=== PATIENT | male | born 1955 | race Caucasian/White ===

== ENCOUNTER 2016-08-10 12:50 | Emergency (ER) | payer OTHER ==
[~2016-08-10] VITALS: Ht 172.7 cm; Wt 72.7 kg
[~2016-08-10 12:50] MED LIST: [UNRECOGNIZED DRUG - CODE] PO
[2016-08-10 13:22] VITALS: BP 104/65; PULSE 71; RESP 12; O2SAT 98
[2016-08-10 14:46] LABS: BASOPHILS % (AUTO) 0.7 % (0-3); MONOCYTES % (AUTO) 11.7 % (4-12); Mean Corpuscular Hemoglobin 30.7 pg (27.0-35.0); Mean Corpuscular Volume 90.5 fL (81-100); NEUTROPHILS % (AUTO) 56.9 % (40-74); Platelet Count 104 bil/L (150-400)
--- NOTE | 2016-08-10 15:01 | DRSVH ---
PROCEDURE: X-RAY CHEST, TWO VIEWS ([id number]) INDICATIONS: CHEST PAIN TECHNIQUE: 2 views of the chest were acquired. COMPARISON: None. FINDINGS: Surgical changes and devices: None. Lungs and pleura: No pleural effusions or pneumothorax. Lungs are clear. Mediastinum: Mediastinal contours are normal. Heart size is normal. Bones and chest wall: No suspicious bony abnormalities. Soft tissues appear unremarkable. IMPRESSION: 1. No acute cardiopulmonary disease. Dictated by: Tyrone Dobbins M.D. on 08/10/2016 at 15:00 Approved by: Tyrone Dobbins M.D. on 08/10/2016 at 15:00
[2016-08-10 15:15] LABS: TROPONIN T < 0.010 ug/L (0.0-0.011)
[2016-08-10 15:19] LABS: Lipase 58 U/L (13-60); Magnesium 1.9 mg/dL (1.6-2.6)
[2016-08-10] MEDS ORDERED: LISI-571 PO (15:35)
[2016-08-10] MEDS ORDERED: [UNRECOGNIZED DRUG - REMARK] (15:35)
--- NOTE | 2016-08-10 15:39 | ED.REPORT ---
HPI-Chest Pain 40 and Over Date of Service Aug 10, 2016 ED Provider: Doc,Ed MD History of Present Illness: 61yo male recently released from incarceration c/o pain, "all over." This pain is identical to pain that has been longstanding for several years. he denies any new trauma. He reports hx. of lymphoma and thyroid disease. Denies any current meds, "But I'm supposed to be taking medicine." He is currently homeless, residing in area shelters. Nursing Notes Stated Complaint: SEVERE THROAT,THYROID,SPINE AND ABD PAIN Chief Complaint: General Complaint Nursing Notes Reviewed: Yes Allergies: Coded Allergies: NSAIDS (Non-Steroidal Anti-Inflamma (Verified Allergy, Unknown, 08/10/16) Sulfa (Sulfonamide Antibiotics) (Verified Allergy, Unknown, 08/10/16) gabapentin (Verified Allergy, Unknown, 08/10/16) ranitidine (Verified Allergy, Unknown, makes pt very thirsty, 08/10/16) tramadol (Verified Allergy, Unknown, 08/10/16) acetaminophen (Verified Adverse Reaction, Severe, Liver damage, 12/08/08) ibuprofen (Verified Adverse Reaction, Intermediate, GI distress, 12/08/08) peanut (Verified Adverse Reaction, Intermediate, Rash, itch., 12/08/08) General Time Seen by MD: 15:38 Chief Complaint Back pain, Other Pain bodywide. Hx Obtained From: Patient Arrived By: Walk-in Sudden in Onset?: No Location: : Back: Neck: Shoulder left: Shoulder right Quality: Aching Radiation: : Does not radiate Severity: Current: Severe Severity: Maximum: Severe Associated with: Denies: Cough, non-productive, Fever, Near-syncope, Palpitations, Shortness of Breath Pertinent Negative: Pt denies other symptoms Similar Sx Previous: Yes Risk Factors )( CAD Risk Stratification Risk factors reviewed )( PE Risk Stratification Malignancy HEART Score HEART for MACE: Low index of susp (0), Normal ECG (0), Age 45 - 65 (1), < or = to NL troponin (0) HEART for MACE Score: 0-3 (low risk 0.9%-1.7%) Past Medical History Past Medical History lymphoma thyroid disease Social History Drug Use: Denies drug use Other Social History: Homeless Ambulatory Status Independent Review of Systems Constitutional: Denies: Chills, Fever Respiratory: Denies: Shortness of breath Cardiovascular: Reports: Chest pain GI: Denies: Abdominal pain Musculoskeletal: Reports: Back pain Neurologic: Reports: Headache, Denies: Focal weakness Psychiatric: Reports: Anxiety Physical Exam Initial Vital Signs Vital Signs (First) Date Time Temp Pulse Resp B/P Pulse Ox O2 Delivery O2 Flow Rate FiO2 08/10/16 13:22 36.7 71 12 104/65 98 Room Air Initial VS: Vital signs normal General/Constitutional: Awake, Alert, No acute distress, Well hydrated, Not toxic appearing Respiratory / Chest: Breath sounds NL, Breath sounds = bilat, No respiratory distress Cardiovascular: Heart rate NL, Regular rhythm, Heart sounds NL Abdomen: Soft, Non-tender, No guarding, No rebound Interpretation & Diagnostics Lab Results Interpretation Result Diagram: 08/10/16 1436 08/10/16 1436 Test 08/10/16 14:36 White Blood Count 4.6th/mm3 (3.8-10.1) Red Blood Count 4.20mil/mm3 (4.40-5.80) Hemoglobin 12.9g/dL (13.8-17.2) Hematocrit 38.0% (41.0-50.0) Mean Corpuscular Volume 90.5fL (81-100) Mean Corpuscular Hemoglobin 30.7pg (27.0-35.0) Mean Corpuscular Hemoglobin Concent 33.9% (32.0-37.0) Red Cell Distribution Width 12.5% (12.3-15.4) Platelet Count 104bil/L (150-400) Neutrophils (%) (Auto) 56.9% (40-74) Lymphocytes (%) (Auto) 28.5% (14-46) Monocytes (%) (Auto) 11.7% (4-12) Eosinophils (%) (Auto) 2.0% (0-5) Basophils (%) (Auto) 0.7% (0-3) Sodium Level 140mEq/L (134-144) Potassium Level 4.3mEq/L (3.5-5.2) Chloride Level 101mEq/L (97-108) Carbon Dioxide Level 26mmol/L (18-29) Blood Urea Nitrogen 19mg/dL (6-24) Creatinine 0.76mg/dL (0.76-1.27) Estimat Glomerular Filtration Rate 112mL/min (>59) Glucose Level 101mg/dL (60-99) Calcium Level 10.0mg/dL (8.5-10.1) Magnesium Level 1.9mg/dL (1.6-2.6) Total Bilirubin 0.3mg/dL (0.0-1.2) Aspartate Amino Transf (AST/SGOT) 19U/L (0-50) Alanine Aminotransferase (ALT/SGPT) 13U/L (0-44) Alkaline Phosphatase 47U/L (25-160) Troponin T < 0.010ug/L (0.0-0.011) Total Protein 7.3g/dL (6.4-8.4) Albumin 4.0g/dL (3.4-5.0) Lipase 58U/L (13-60) ECG Interpretation Time: 16:00 Interpreted by: ED physician Normal ECG Interpretation: Normal ECG w/ rate of... (65) Re-Eval/Medical Decision Med Decision/Clinical Course Pt. eloped prior to completion of ED evaluation. Discharge & Departure Primary Impression: Chronic pain disorder Disposition: AGAINST MEDICAL ADVICE (Pt. eloped prior to completion of evaluation or development of treatment plan) Referrals: NOPCP (PCP) EDSupervising Provider for APC: Lane Ceballos MD, Christopher R PAC Aug 10, 2016 15:39
== END 2016-08-10 17:25 | disposition left against medical advice (07) ==
LOC: SED 12:50
DX: M54.9 Dorsalgia, unspecified (principal); M25.511 Pain in right shoulder; M25.512 Pain in left shoulder; G89.29 Other chronic pain; R07.9 Chest pain, unspecified; Z59.0 Homelessness; Z88.2 Allergy status to sulfonamides; Z88.5 Allergy status to narcotic agent; Z88.8 Allergy status to other drugs, medicaments and biological substances; Z91.048 Other nonmedicinal substance allergy status; Z91.010 Allergy to peanuts; Z53.29 Procedure and treatment not carried out because of patient's decision for other reasons
CPT/HCPCS: 36415; 71020; 80053; 83690; 83735; 84484; 85025; 93005; 99284; G0463

== ENCOUNTER 2016-08-11 06:44 | Emergency (ER) | payer OTHER ==
[~2016-08-11] VITALS: Ht 172.7 cm; Wt 72.7 kg
[~2016-08-11 06:44] MED LIST changes: +LISI-571 PO; +[UNRECOGNIZED DRUG - REMARK]
[2016-08-11 06:58] VITALS: BP 120/75; PULSE 74; RESP 16; O2SAT 98
--- NOTE | 2016-08-11 07:54 | ED.REPORT ---
HPI-General Illness Date of Service Aug 11, 2016 ED Provider: Greyson Yancey MD The patient is a 61 year old male with history of stage IV non-Hodgkin lymphoma s/p chemotherapy, who presents to the emergency department with multiple complaints. The patient has experienced abdominal pain, throat pain, and difficulty urinating over the last several months. He denies fever, chills, dysuria, vomiting or diarrhea. He has concerns for multiple types of cancer and other potentially life threatening disease. He was seen in the emergency department and had a normal workup. Nursing Notes Stated Complaint: THROAT PAIN/ABDOMINAL PAIN Chief Complaint: General Complaint Nursing Notes Reviewed: Yes Allergies: Coded Allergies: NSAIDS (Non-Steroidal Anti-Inflamma (Verified Allergy, Unknown, 08/10/16) Sulfa (Sulfonamide Antibiotics) (Verified Allergy, Unknown, 08/10/16) gabapentin (Verified Allergy, Unknown, 08/10/16) ranitidine (Verified Allergy, Unknown, makes pt very thirsty, 08/10/16) tramadol (Verified Allergy, Unknown, 08/10/16) acetaminophen (Verified Adverse Reaction, Severe, Liver damage, 12/08/08) ibuprofen (Verified Adverse Reaction, Intermediate, GI distress, 12/08/08) peanut (Verified Adverse Reaction, Intermediate, Rash, itch., 12/08/08) General Time Seen by MD: 07:07 Chief Complaint Multip medical complaints Hx Obtained From: Patient Arrived By: Walk-in Sudden in Onset?: No Onset Occurred: More than a week ago... Symptom Duration: Intermittent Location: : Abdomen Quality: Painful Severity: Current: Mild Severity: Maximum: Moderate Recent Healthcare: No recent hospitalization, Recent doctor visit Similar Sx Previous: Yes Past Medical History Past Medical History Stage IV non-Hodgkin lymphoma s/p chemotherapy Past Surgical History Hernia repairs Family History Noncontributory Smoking History Unknown if Ever Smoker Social History Other Social History: Local resident Ambulatory Status Independent Review of Systems +difficulty urinating Full Review of Systems Constitutional: Denies: Chills, Fever Ears / Nose / Throat: Reports: Throat pain GI: Reports: Abdominal pain, Denies: Diarrhea, Vomiting Male: Denies Dysuria Complete sys rev & neg: except as marked. Physical Exam Vital Signs Vital Signs Date Time Temp Pulse Resp B/P Pulse Ox O2 Delivery O2 Flow Rate FiO2 6/30/17 08:39 36.7 71 16 129/55 98 Room Air 08/11/16 06:58 36.3 74 16 120/75 98 Room Air Initial VS: Reviewed Respiratory: Breath sounds normal, Clear to auscultation, No respiratory distress Cardiovascular: Regular rate & rhythm, Heart sounds normal, Intact distal pulses Abdomen / GI: Soft, Non-tender, No guarding, No rebound, No distention Lymphatic: No lymphadenopathy Extremities: Vascular intact, Neuro intact, No swelling, No tenderness Skin: Warm, Dry, No cyanosis Neurologic: Alert, Oriented, Nonfocal Psychiatric: Mood/affect normal, Behavior normal, Normal thought content General/Constitutional: Awake, Alert, Cooperative ENT: Airway patent, Mucous membranes moist, Pharynx NL, No peritonsillar abscess Neck: Atraumatic, Supple, No meningismus, Full range of motion, No adenopathy, No swelling, Non-tender, No midline vertebral tend Re-Eval/Medical Decision Med Decision/Clinical Course 61-year-old male history of lymphoma presenting with numerous complaints all of which are chronic. He reports throat pain that has been going on for several years. He reports he has difficulty urinating has been going on for several years. He denies any dysuria or hematuria. He reports chronic cough. He denies URI symptoms or fevers. He has no acute complaints. He was seen yesterday for chronic pain and had numerous labs performed all of which were normal. He also had a urine was normal. Patient needs a primary doctor. He was referred to one and plans to go over there today to get up appointment to establish care. I do not see any acute indication for labs or diagnostics given workup yesterday in no acute complaints. He will follow up with primary doctor. Source of Hx: Old records Re-Evaluation/Progress Note: Discussed plan for discharge. All questions were addressed. Counseled Regarding: Diagnosis, Need for follow-up, When/why to return to ED Discharge & Departure Primary Impression: Throat pain Disposition: Home Discharge Condition All VS Reviewed: Yes Condition: Stable Referrals: [facility] Scribe Attestation Portions of this note were transcribed by Becki Goel. I, Dr. Yancey personally performed the history, physical exam and medical decision-making; I reviewed and confirmed the accuracy of the information in the transcribed note. Signed by: Owen Goldman, 08/11/2016 at 1000. Greyson Yancey MD Aug 11, 2016 07:54 Amando,Becki Parish Aug 11, 2016 09:35
[2016-08-11 08:39] VITALS: BP 129/55; PULSE 71; RESP 16; O2SAT 98
== END 2016-08-11 08:40 | disposition home or self-care (01) ==
LOC: SED 06:44
DX: R07.0 Pain in throat (principal); R10.9 Unspecified abdominal pain; R39.198 Other difficulties with micturition; C85.90 Non-Hodgkin lymphoma, unspecified, unspecified site; Z88.6 Allergy status to analgesic agent; Z88.2 Allergy status to sulfonamides; Z88.8 Allergy status to other drugs, medicaments and biological substances; Z91.010 Allergy to peanuts
CPT/HCPCS: 99283; G0463